=== PATIENT | male | born 1950 ===

== ENCOUNTER 2018-03-11 07:00 | Day surgery (SDC) | payer OTHER ==
[~2018-03-11] VITALS: Ht 175.3 cm; Wt 84.8 kg
[~2018-03-11 07:00] MED LIST: LANTUS; METFORMIN PO
[2018-03-12] MEDS ORDERED: FLAGYL500MG PO (14:48)
[2018-03-12] MEDS ORDERED: OXYC1TAB9 PO (14:48)
[2018-03-12] MEDS ORDERED: INTESTINEX680 M1 PO (14:48)
== END 2018-03-12 08:00 | disposition home or self-care (01) ==
LOC: CIR.AMB 07:00 → O/R 10:56 → SURH 10:56 → SURG 11:00 → EDSTATUS 11:00 → SURG 14:30 → CIR.AMB 03-12 08:00 → O/R 03-12 15:36 → SURH 03-12 15:36
DX: C20 Malignant neoplasm of rectum (principal); E11.9 Type 2 diabetes mellitus without complications; J45.998 Other asthma; D64.89 Other specified anemias